=== PATIENT | male | born 1935 | race Caucasian/White ===

== ENCOUNTER 2019-10-19 12:06 | Day surgery (SDC) | payer MEDICARE, BC ==
[~2019-10-19] VITALS: Ht 170.3 cm; Wt 66.1 kg
[~2019-10-19 12:06] MED LIST: ASPIRIN 81M81 MG/TA2 PO; ASPIRIN E.C. 8181 MG PO; ATIVAN 0.50.5 MG/TAB PO; CETIRIZINE10 MG PO; COZAAR100 MG PO; DIOVAN320 MG PO; FOLIC ACID 11 MG/TA1 PO; LABETALOL200 MG PO; LIPITOR 10MG10 MG PO; LUTEIN6 MG; MOTRIN 800800 MG/TAB PO; MULTIPLE VITAMI1 TA5 PO; OMEGA-3 1000 MG1 CAP PO; SINGULAIR 110 MG/TAB PO; TYLENOL 325MG325 MG PO; VITAMIN C500 MG PO; VITAMIN FLUSH-F1 CAP PO
[2019-10-19 12:58] LABS: HEMATOCRIT 42.7 % (42.0-52.0); HEMOGLOBIN 14.7 g/dl (13.5-18.0); MEAN CELL VOLUME 101 fl (80.0-100.0); MEAN CORPUSCULAR HEMOGLOBIN 35 pg (27.0-31.0); MEAN CORPUSCULAR HGB CONC 34 g/dl (33.0-37.0); MEAN PLATELET VOLUME 8.5 fl (7.4-10.4); PLATELET COUNT 123 K/mm3 (130-400); RED BLOOD COUNT 4.25 M/mm3 (4.20-5.60); REDCELL DISTRIBUTION WIDTH-CV 13.2 % (11.5-14.5)
[2019-10-19] MEDS ORDERED: CALCIUM 600MG+D1 TAB PO (13:00)
[2019-10-19] MEDS ORDERED: ZYRTEC 10MG10 MG PO (13:01)
[2019-10-19 13:04] VITALS: BP 165/115; PULSE 106; TEMP 97.8
[2019-10-19 13:12] LABS: INR 1.1 (0.8-3.0); PROTHROMBIN TIME 11.8 SECONDS (9.7-12.8)
[2019-10-19 13:13] LABS: CALCIUM 9.2 mg/dL (8.4-10.2); CREATININE, serum 1.04 (0.66-1.25); MAGNESIUM 1.8 mg/dL (1.6-2.3); POTASSIUM 4.2 mmol/L (3.4-5.0)
[2019-10-19] MEDS ORDERED: FLOMAX 0.40.4 MG/CAP PO (13:21)
[2019-10-19] MEDS ORDERED: ELIQUIS 5MG PO (13:22)
[2019-10-19 13:43] LABS: THYROID STIMULATING HORMONE 2.7 uIU/mL (0.465-4.680)
[2019-10-19 13:52] VITALS: BP 138/78; PULSE 57
[2019-10-19 13:55] VITALS: BP 144/86; PULSE 58
[2019-10-19 14:10] VITALS: BP 137/75; PULSE 54
[2019-10-19 14:25] VITALS: BP 139/93; PULSE 60
[2019-10-19 14:40] VITALS: BP 151/80; PULSE 57
--- NOTE | 2019-10-19 15:00 | NUR ---
Steady gait. DC instructions reviewed with pt, he expresses understanding. He is assisted by wheelchair to [facility] transportation vehicle with personal belongings. INT was DC'd with catheter intact, and bleeding at site controlled with coban wrap.
== END 2019-10-19 15:00 | disposition home or self-care (01) ==
LOC: COL.CAR 12:06
PROVIDERS: Internal Medicine Cardiovascular Disease
DX: I48.0 Paroxysmal atrial fibrillation (principal); I10 Essential (primary) hypertension; I27.20 Pulmonary hypertension, unspecified; I73.9 Peripheral vascular disease, unspecified; E78.2 Mixed hyperlipidemia; G47.33 Obstructive sleep apnea (adult) (pediatric); E55.9 Vitamin D deficiency, unspecified; Z87.891 Personal history of nicotine dependence; Z79.01 Long term (current) use of anticoagulants; Z79.899 Other long term (current) drug therapy; Z82.3 Family history of stroke; Z80.0 Family history of malignant neoplasm of digestive organs

== ENCOUNTER 2020-03-06 04:04 | Emergency (ER) | payer MEDICARE, BC ==
[~2020-03-06] VITALS: Ht 165.1 cm; Wt 65.9 kg
[~2020-03-06 04:04] MED LIST changes: +CALCIUM 600MG+D1 TAB PO; +ELIQUIS 5MG PO; +FLOMAX 0.40.4 MG/CAP PO; +ZYRTEC 10MG10 MG PO
[2020-03-06 04:06] VITALS: BP 167/87; PULSE 79; TEMP 97.6
[2020-03-06] MEDS ORDERED: BETAPACE 120MG120 MG PO (04:14)
[2020-03-06] MEDS ORDERED: LIDODERM 5% PATC1 EA TP (05:11)
== END 2020-03-06 05:20 | disposition home or self-care (01) ==
LOC: COL.ER 04:04
DX: S32.019A Unspecified fracture of first lumbar vertebra, initial encounter for closed fracture (principal); I10 Essential (primary) hypertension; E78.00 Pure hypercholesterolemia, unspecified; Z87.891 Personal history of nicotine dependence; Z79.01 Long term (current) use of anticoagulants; W19.XXXA Unspecified fall, initial encounter

== ENCOUNTER 2020-04-11 08:39 | Day surgery (SDC) | payer MEDICARE, BC ==
[~2020-04-11] VITALS: Ht 170.3 cm; Wt 65.3 kg
[~2020-04-11 08:39] MED LIST changes: +BETAPACE 120MG120 MG PO; +LIDODERM 5% PATC1 EA TP
[2020-04-11 09:28] LABS: HEMATOCRIT 40.6 % (42.0-52.0); HEMOGLOBIN 13.8 g/dl (13.5-18.0); MEAN CELL VOLUME 102 fl (80.0-100.0); MEAN CORPUSCULAR HEMOGLOBIN 35 pg (27.0-31.0); MEAN CORPUSCULAR HGB CONC 34 g/dl (33.0-37.0); MEAN PLATELET VOLUME 8.9 fl (7.4-10.4); PLATELET COUNT 137 K/mm3 (130-400); RED BLOOD COUNT 3.97 M/mm3 (4.20-5.60); REDCELL DISTRIBUTION WIDTH-CV 12.7 % (11.5-14.5)
[2020-04-11 09:33] VITALS: BP 143/90; PULSE 87; TEMP 97.9
[2020-04-11 10:09] LABS: INR 1.5 (0.8-3.0); PROTHROMBIN TIME 16.7 SECONDS (9.7-12.8)
[2020-04-11 10:10] LABS: CREATININE, serum 1.11 (0.66-1.25); MAGNESIUM 1.9 mg/dL (1.6-2.3); POTASSIUM 4.5 mmol/L (3.4-5.0)
[2020-04-11 10:12] LABS: PARTIAL THROMBOPLASTIN TIME 35.2 SECONDS (26.0-37.0)
[2020-04-11 10:31] VITALS: BP 107/67; PULSE 82
[2020-04-11 10:40] LABS: THYROID STIMULATING HORMONE 2.2 uIU/mL (0.465-4.680)
[2020-04-11 10:46] VITALS: BP 129/76; PULSE 87
[2020-04-11 11:19] VITALS: BP 143/82; BP 148/66; PULSE 66; PULSE 82
--- NOTE | 2020-04-11 11:20 | NUR ---
INT discontinued intact. Discharge instructions given.
--- NOTE | 2020-04-11 11:41 | NUR ---
Transferred gabriela Latham transportation by stephen
== END 2020-04-11 11:25 | disposition home or self-care (01) ==
LOC: COL.CAR 08:39
PROVIDERS: Internal Medicine Cardiovascular Disease
DX: I48.0 Paroxysmal atrial fibrillation (principal); I10 Essential (primary) hypertension; I27.20 Pulmonary hypertension, unspecified; E78.5 Hyperlipidemia, unspecified; G47.33 Obstructive sleep apnea (adult) (pediatric); J45.909 Unspecified asthma, uncomplicated; H91.90 Unspecified hearing loss, unspecified ear; Z79.01 Long term (current) use of anticoagulants; Z79.899 Other long term (current) drug therapy; Z79.02 Long term (current) use of antithrombotics/antiplatelets; Z87.891 Personal history of nicotine dependence
CPT/HCPCS: J2704

== ENCOUNTER 2020-12-17 07:29 | Emergency (ER) | payer MEDICARE, BC ==
[~2020-12-17] VITALS: Ht 167.6 cm; Wt 65.0 kg
[2020-12-17 07:36] VITALS: BP 130/98; TEMP 97.3
[2020-12-17 08:18] LABS: BASO % 0.6 % (0.0-2.0); EOS # 0.1 (0.0-0.7); EOS % 2.7 % (0-4.0); GRAN # 2.4 (1.4-6.5); GRAN % 47.1 % (42.2-75.2); HEMATOCRIT 35.3 % (42.0-52.0); HEMOGLOBIN 12.5 g/dl (13.5-18.0); LYMPH # 2.1 (1.2-3.4); LYMPH % 41.4 % (20.0-51.0); MEAN CELL VOLUME 104 fl (80.0-100.0); MEAN CORPUSCULAR HEMOGLOBIN 37 pg (27.0-31.0); MEAN CORPUSCULAR HGB CONC 35 g/dl (33.0-37.0); MEAN PLATELET VOLUME 8.6 fl (7.4-10.4); MONO # 0.4 (0.1-0.6); MONO % 7.4 % (1.7-9.3); PLATELET COUNT 126 K/mm3 (130-400); REDCELL DISTRIBUTION WIDTH-CV 12.9 % (11.5-14.5)
[2020-12-17 09:23] VITALS: PULSE 75
== END 2020-12-17 08:45 | disposition home or self-care (01) ==
LOC: COL.ER 07:29
PROVIDERS: Family Medicine
DX: S00.83XA Contusion of other part of head, initial encounter (principal); H11.32 Conjunctival hemorrhage, left eye; I10 Essential (primary) hypertension; I48.91 Unspecified atrial fibrillation; E78.00 Pure hypercholesterolemia, unspecified; Z79.01 Long term (current) use of anticoagulants; Z79.899 Other long term (current) drug therapy; W01.0XXA Fall on same level from slipping, tripping and stumbling without subsequent striking against object, initial encounter

== ENCOUNTER 2020-12-19 18:52 | Emergency (ER) | payer MEDICARE, BC ==
[~2020-12-19] VITALS: Ht 165.1 cm; Wt 64.5 kg
[2020-12-19 18:54] VITALS: TEMP 97.8
[2020-12-19 19:26] LABS: BASO % 0.4 % (0.0-2.0); EOS # 0.1 (0.0-0.7); EOS % 1.9 % (0-4.0); GRAN # 2.7 (1.4-6.5); GRAN % 49.4 % (42.2-75.2); HEMATOCRIT 32.6 % (42.0-52.0); HEMOGLOBIN 11.3 g/dl (13.5-18.0); LYMPH # 2.1 (1.2-3.4); LYMPH % 38.3 % (20.0-51.0); MEAN CELL VOLUME 106 fl (80.0-100.0); MEAN CORPUSCULAR HEMOGLOBIN 37 pg (27.0-31.0); MEAN CORPUSCULAR HGB CONC 35 g/dl (33.0-37.0); MEAN PLATELET VOLUME 8.6 fl (7.4-10.4); MONO # 0.5 (0.1-0.6); MONO % 9.3 % (1.7-9.3); PLATELET COUNT 109 K/mm3 (130-400); RED BLOOD COUNT 3.08 M/mm3 (4.20-5.60); REDCELL DISTRIBUTION WIDTH-CV 13.1 % (11.5-14.5)
[2020-12-19 19:47] LABS: ALBUMIN 3.4 gm/dL (3.4-4.8); BILIRUBIN,TOTAL 0.7 mg/dL (0.2-1.2); CALCIUM 8.4 mg/dL (8.4-10.2); CREATININE, serum 1.12 mg/dL (0.72-1.25); POTASSIUM 4.5 mmol/L (3.5-4.5); TOTAL PROTEIN 5.7 gm/dL (6.2-8.1)
[2020-12-19 22:16] VITALS: BP 149/108; PULSE 98
== END 2020-12-19 22:16 | disposition home or self-care (01) ==
LOC: COL.ER 18:52
PROVIDERS: Family Medicine
DX: S05.12XA Contusion of eyeball and orbital tissues, left eye, initial encounter (principal); W19.XXXA Unspecified fall, initial encounter

== ENCOUNTER 2020-12-30 14:44 | Inpatient (IN) | payer MEDICARE, BC ==
[~2020-12-30] VITALS: Ht 165.1 cm; Wt 66.7 kg
[2020-12-30 15:47] LABS: BASO % 0.8 % (0.0-2.0); EOS % 0.8 % (0-4.0); GRAN # 2.9 K/mm3 (1.4-6.5); GRAN % 57.9 % (42.2-75.2); HEMOGLOBIN 12.6 g/dl (13.5-18.0); LYMPH # 1.5 K/mm3 (1.2-3.4); LYMPH % 29.9 % (20.0-51.0); MEAN CELL VOLUME 105 fl (80.0-100.0); MEAN CORPUSCULAR HEMOGLOBIN 36 pg (27.0-31.0); MEAN CORPUSCULAR HGB CONC 35 g/dl (33.0-37.0); MONO # 0.5 K/mm3 (0.1-0.6); MONO % 9.8 % (1.7-9.3); PLATELET COUNT 107 K/mm3 (130-400); RED BLOOD COUNT 3.46 M/mm3 (4.20-5.60); REDCELL DISTRIBUTION WIDTH-CV 13.2 % (11.5-14.5)
[2020-12-30 15:48] LABS: HEMATOCRIT 36.4 % (42.0-52.0)
[2020-12-30 16:03] LABS: ALANINE AMINOTRANSFERASE 49 U/L (0-55); ALBUMIN 3.8 gm/dL (3.4-4.8); ALKALINE PHOSPHATASE 77 U/L (0-750); ANION GAP 13 mmol/L (7-16); AST,SGOT 56 U/L (5-34); BLOOD UREA NITROGEN 12 mg/dL (8-26); CARBON DIOXIDE 23 mmol/L (23-31); CHLORIDE 102 mmol/L (98-107); CREATININE, serum 1.22 mg/dL (0.72-1.25); GLUCOSE 204 mg/dL (70-99); POTASSIUM 3.8 mmol/L (3.5-4.5); SODIUM 138 mmol/L (136-145); TOTAL PROTEIN 6.5 gm/dL (6.2-8.1)
[2020-12-30 16:10] LABS: TROPONIN-I < 0.010 ng/mL (0.00-0.033)
[2020-12-30 17:54] LABS: COLLECTION METHOD CLEAN CATCH
[2020-12-30 18:00] LABS: PH 6 (5-8); SQUAMOUS EPITHELIAL None Seen /hpf; URINE APPEARANCE Clear; URINE BACTERIA None Seen /hpf; URINE BILIRUBIN Negative (NEGATIVE); URINE BLOOD Negative (NEGATIVE); URINE COLOR Yellow; URINE GLUCOSE 2+ (NEGATIVE); URINE KETONE Negative (NEGATIVE); URINE LEUKOCYTE ESTERASE Negative (NEGATIVE); URINE NITRATE Negative (NEGATIVE); URINE PROTEIN(semi-quant) Negative (NEGATIVE); URINE RBC 0-2 /hpf
[2020-12-30 19:37] LABS: INR 1.2 (0.8-3.0); PROTHROMBIN TIME 13.3 SECONDS (9.7-12.8)
[2020-12-30 19:39] LABS: PARTIAL THROMBOPLASTIN TIME 31.5 SECONDS (26.0-37.0)
--- NOTE | 2020-12-30 20:10 | NUR ---
Patient arrived to the unit from ED, Alert and oriented x 4, VSS, no complains of pain, nausea or vomiting. He is very weak, unable to transfer himself from bed to bed. Friend with him as support person. Tele in place, Room air.
[2020-12-30 21:21] VITALS: BP 134/86; PULSE 61; TEMP 97.5
[2020-12-31] VITALS (7 sets, daily range): BP systolic 125–153; BP diastolic 67–91; PULSE 74–106; TEMP 97.4–97.9
[2020-12-31 06:33] LABS: BASO % 0.6 % (0.0-2.0); EOS % 0.7 % (0-4.0); GRAN # 3.1 K/mm3 (1.4-6.5); GRAN % 56.7 % (42.2-75.2); HEMOGLOBIN 12.4 g/dl (13.5-18.0); LYMPH # 1.8 K/mm3 (1.2-3.4); LYMPH % 33.6 % (20.0-51.0); MEAN CELL VOLUME 108 fl (80.0-100.0); MEAN CORPUSCULAR HEMOGLOBIN 37 pg (27.0-31.0); MEAN CORPUSCULAR HGB CONC 34 g/dl (33.0-37.0); MONO # 0.4 K/mm3 (0.1-0.6); MONO % 7.8 % (1.7-9.3); PLATELET COUNT 106 K/mm3 (130-400); RED BLOOD COUNT 3.39 M/mm3 (4.20-5.60); REDCELL DISTRIBUTION WIDTH-CV 13.2 % (11.5-14.5)
[2020-12-31 06:34] LABS: HEMATOCRIT 36.7 % (42.0-52.0)
[2020-12-31 06:53] LABS: CALCIUM 9.2 mg/dL (8.4-10.2); CHOLESTEROL RISK RATIO 1.7; CREATININE, serum 1.16 mg/dL (0.72-1.25)
--- NOTE | 2020-12-31 07:02 | NUR ---
Patient has had a calm night, his HR did not increased over 120, He has been resting in bed but with insomnia. Shift report given to day nurse.
--- NOTE | 2020-12-31 10:00 | NUR ---
Assessment completed, patient alert/disoriented but easily redireted and re oriented, vital signs stable/ Tachy around 100 bpm and A.fib on tele, Sotalol is currently on hold per , lungs CTA/ no resp.difficulty, patient has brusing to face from recent falls, fall p/c in place here and he remains a high fall risk , morning meds given ,he is eating and drinking well, plans for SNF upon discharge, will continue to monitor
--- NOTE | 2020-12-31 15:18 | NUR ---
Plan is [facility] ID[facility] or SNF. SW met with patient about care plan. Patient reports that he resides at [facility] independent living. Patient reports that his passed a year ago and that he has two children Zoila Cuello in [place] and Jhonatan Harris . Patient indicated that he has a can and walker that he interchanges for mobility and Dr. Fitzpatrick is PCP. Leandra shares that he has not been to primary in a while. SW reached out to [facility] and no DPOA on file . Patient is okay with going to rehab however he will have to have at least three mid nights. Patient has has several recent falls but did not report them to [facility]. WIll follow. for care supports.
--- NOTE | 2020-12-31 20:30 | NUR ---
Patient is in chair, watching TV, he is alert, oriented, and active. VSS, no pain, nausea or vomiting. Tele in place, Glucose WNR. Assessment completed, meds provided, no further needs at this time, call light within reach.
--- NOTE | 2020-12-31 21:58 | NUR ---
Patient reports head ache, some tylenol provided.
--- NOTE | 2021-01-01 04:00 | NUR ---
Patient removed the IV access from his RAC site. Started new with 20 yasir IV in right forearm.
[2021-01-01 06:31] VITALS: BP 118/69; PULSE 98; TEMP 97.9
--- NOTE | 2021-01-01 07:04 | NUR ---
Patient was very active at night. He visit the restrom several times. Then he was sleeping for some hours. AT 6am he reports feeling weak, and he used the urinal instead of going to the restroom. HR in the 100's, not over 120s. Patient took IV out. Linen changed and new IV started. Shift report given to day nurse.
--- NOTE | 2021-01-01 10:00 | NUR ---
Assessment completed, alert/ disoriented but easily redirected, denies pain, vital signs stable, HR 90-120, A.fib and irregular on tele, notified and aware, he denies any SOA or resp.difficulty, brusing noted to face from falls at home, he is a high fall risk here as well, bed and chair alarms and fall p/c in place, plans for d/c to [facility] SNF on Saturday, I have discussed plan of care with his close friend who has been in contact with his family, shira romano to monitor
[2021-01-01 13:43] VITALS: BP 125/81; PULSE 55; TEMP 98.1
[2021-01-01 17:08] VITALS: BP 122/64; PULSE 104; TEMP 98.2
[2021-01-01 20:01] VITALS: BP 167/88; PULSE 107; TEMP 98.9
[2021-01-01 20:10] VITALS: BP 146/94; PULSE 102; TEMP 98.5
[2021-01-02] VITALS (10 sets, daily range): BP systolic 91–150; BP diastolic 52–95; PULSE 78–109; TEMP 97.5–99
--- NOTE | 2021-01-02 00:55 | NUR ---
ALERT AND CONFUSED. SETTING UP IN RECLINER. AMB TO BR W NURSE ASST, GAIT BELT. PM MEDS. TUCKED IN FOR NIGHT. BED ALARM ON. CALL LIGHT WI REACH. PM MEDS GIVEN. NEEDS MET.
--- NOTE | 2021-01-02 05:47 | NUR ---
RESTED THROUGH THE NIGHT WITHOUT INCIDENT. NEEDS ARE MET.
--- NOTE | 2021-01-02 09:00 | NUR ---
Shift assessment complete. Pt sitting up in recliner. Assisted to commode around 0745, pt very shaky. x2 assist w/gait belt and walker needed to get pt to commode. Pt incontinent of small amount of stool in recliner. Began vomiting undigested food while sitting on commode. 0800 detox score 6. PO valium 7.5 mg given per orders. Pt assisted back to bed. Heart rhythm irregular, rate 90-120. Lungs CTA. Pt alert, partially oriented. Denies pain or other concerns at this time. Chair alarm on and call light in reach. Continuing to monitor.
[2021-01-02 09:05] LABS: HEMOGLOBIN 12.8 g/dl (13.5-18.0); MEAN CELL VOLUME 105 fl (80.0-100.0); MEAN CORPUSCULAR HEMOGLOBIN 37 pg (27.0-31.0); MEAN CORPUSCULAR HGB CONC 35 g/dl (33.0-37.0); MEAN PLATELET VOLUME 9.4 fl (7.4-10.4); PLATELET COUNT 103 K/mm3 (130-400); RED BLOOD COUNT 3.47 M/mm3 (4.20-5.60)
[2021-01-02 09:08] LABS: HEMATOCRIT 36.4 % (42.0-52.0)
[2021-01-02 09:18] LABS: IRON,SERUM 56 ug/dL (35-150)
[2021-01-02 09:21] LABS: CALCIUM 9.2 mg/dL (8.4-10.2); CREATININE, serum 1.32 mg/dL (0.72-1.25); MAGNESIUM 1.6 mg/dL (1.6-2.6); POTASSIUM 4.5 mmol/L (3.5-4.5)
[2021-01-02 09:28] LABS: TOTAL IRON BINDING CAPACITY 186 ug/dL (261-462)
--- NOTE | 2021-01-02 10:15 | NUR ---
LUZ ELENA Castanon notified pt more drowsy than this morning and hypotension.
--- NOTE | 2021-01-02 13:15 | NUR ---
JENNIFER attended clinical rounds. The patient was sleeping in his chair and would only wake up briefly. PT/OT are recommending post-acute rehab. The patient's DPOA-HC is in EMR. It designated his and then his two children: Zoila and Jhonatan. JENNIFER attempted to contact Zoila at the phone number charted. No answer. JENNIFER attempted to contact the patient's son, Ricci. JENNIFER left a voicemail. JENNIFER then received a phone call back from Jhonatan. Jhonatan provided JENNIFER with his cell phone #[phone]. JENNIFER updated him on therapy's recommendation. Jhonatan reports that rehab at [facility] is the plan. Jhonatan reports that he has not got an update from an RN or doctor and would like one. JENNIFER notified the patient's PA, Tyra. JENNIFER contacted and faxed a referral to Ronnie at [facility]. Ronnie reports that they are able to accept the patient for a skilled stay, but that the patient will need to be done with detoxing and not requiring anymore valium. SW to continue to follow. *Discharge plan: [facility] SNF*
--- NOTE | 2021-01-02 21:30 | NUR ---
Patiente is resting in bed, alert and oriented, HR over 100. Reports no chest pain. CIWA 2, Tele in place, Afib, Assessment completed, meds provided. No further needs at this time. Call light within reach.
--- NOTE | 2021-01-02 23:30 | NUR ---
Patient had an incontinent BM, was helped to transfer to the [facility] and finish. Linens and gown changed, Hygiene provided. Transfer to bed.
[2021-01-03] VITALS (7 sets, daily range): BP systolic 95–152; BP diastolic 61–85; PULSE 82–107; TEMP 97.7–100.3
--- NOTE | 2021-01-03 06:57 | NUR ---
Patient has had a calm night. Ciwa score between 1 and 2. HR no higher than 120. Patient feels weak, he was able to sleep along the night. Shift report given to day nurse.
[2021-01-03 08:01] LABS: BASO % 0.3 % (0.0-2.0); EOS # 0.1 K/mm3 (0.0-0.7); EOS % 1.7 % (0-4.0); GRAN # 4.9 K/mm3 (1.4-6.5); GRAN % 63.1 % (42.2-75.2); HEMOGLOBIN 12.5 g/dl (13.5-18.0); LYMPH % 25.9 % (20.0-51.0); MEAN CELL VOLUME 104 fl (80.0-100.0); MEAN CORPUSCULAR HEMOGLOBIN 37 pg (27.0-31.0); MEAN CORPUSCULAR HGB CONC 35 g/dl (33.0-37.0); MEAN PLATELET VOLUME 9.3 fl (7.4-10.4); MONO # 0.7 K/mm3 (0.1-0.6); MONO % 8.6 % (1.7-9.3); PLATELET COUNT 112 K/mm3 (130-400); RED BLOOD COUNT 3.39 M/mm3 (4.20-5.60)
[2021-01-03 08:06] LABS: HEMATOCRIT 35.3 % (42.0-52.0)
[2021-01-03 08:21] LABS: CALCIUM 8.8 mg/dL (8.4-10.2); CREATININE, serum 1.03 mg/dL (0.72-1.25); POTASSIUM 4.3 mmol/L (3.5-4.5)
--- NOTE | 2021-01-03 10:47 | NUR ---
PT HAS BEEN SITTING IN RECLINER THIS MORNING. HAS DENIED ANY PAIN, JUST STATES HE FEELS WEAK. THE PATIENT HAS NOT BEEN SCORING MORE THAN 3 ON THE CIWA. NO OTHER CONCERNS.
[2021-01-03] MEDS ORDERED: BETAPACE 120MG120 MG PO ×2 (14:20)
[2021-01-03] MEDS ORDERED: ZYRTEC 10MG10 MG PO (14:20)
[2021-01-03] MEDS ORDERED: VITAMIN FLUSH-F1 CAP PO (14:20)
[2021-01-03] MEDS ORDERED: OMEGA-3 1000 MG1 CAP PO (14:20)
[2021-01-03] MEDS ORDERED: ELIQUIS 5MG PO (14:20)
[2021-01-03] MEDS ORDERED: LIPITOR 10MG10 MG PO (14:20)
[2021-01-03] MEDS ORDERED: FLOMAX 0.40.4 MG/CAP PO (14:20)
[2021-01-03] MEDS ORDERED: TYLENOL 325MG325 MG PO (14:21)
[2021-01-03] MEDS ORDERED: COZAAR100 MG PO ×2 (14:21)
[2021-01-03] MEDS ORDERED: THIAMINE 1100 MG/TAB PO (14:22)
[2021-01-03] MEDS ORDERED: SINGULAIR 110 MG/TAB PO (14:22)
[2021-01-03] MEDS ORDERED: CALCIUM 600MG+D1 TAB PO (14:22)
[2021-01-03] MEDS ORDERED: FOLIC ACID 11 MG/TA1 PO (14:22)
[2021-01-03] MEDS ORDERED: MULTIPLE VITAMI1 TA5 PO (14:23)
[2021-01-03] MEDS ORDERED: VITAMIN C500 MG PO (14:23)
--- NOTE | 2021-01-03 14:27 | NUR ---
The PA notified JENNIFER that the patient is ready to discharge the patient today. JENNIFER faxed updates to Ronnie at [facility]. Ronnie reports that they are able to accept the patient today, but would like his vitals done before they come and pick him up at 1500. JENNIFER notified the patient' RN. JENNIFER faxed the patient's vitals to [facility]. The patient is to discharge today, 01/03, to [facility] for a skilled stay. Transportation was scheduled at 1500, via [facility]. JENNIFER informed the patient, his RN, and the patient's son (Jhonatan) of the time. They were all in agreement to the time. JENNIFER also presented and read the IM form outloud to the patient. The patient verbalized understanding and signed the form. JENNIFER provided him with a copy. No additional needs at this time.
== END 2021-01-03 15:45 | DRG 309 ==
LOC: COL.ER 14:44 → MEDICAL 17:16
PROVIDERS: Family Medicine; Physician Assistant; Student in an Organized Health Care Education/Training Program; ADMIT Internal Medicine
DX: I48.91 Unspecified atrial fibrillation (principal); E87.1 Hypo-osmolality and hyponatremia; E78.00 Pure hypercholesterolemia, unspecified; M19.90 Unspecified osteoarthritis, unspecified site; Z87.891 Personal history of nicotine dependence; D50.9 Iron deficiency anemia, unspecified; D69.6 Thrombocytopenia, unspecified; R73.9 Hyperglycemia, unspecified; F10.10 Alcohol abuse, uncomplicated; Y90.9 Presence of alcohol in blood, level not specified; I12.9 Hypertensive chronic kidney disease with stage 1 through stage 4 chronic kidney disease, or unspecified chronic kidney disease; N18.30 Chronic kidney disease, stage 3 unspecified; N40.0 Benign prostatic hyperplasia without lower urinary tract symptoms
CPT/HCPCS: 99223-AI; 99231-AI; 99232-AI; 99239; J3475; Q9967

== ENCOUNTER 2021-02-15 12:33 | Observation (INO) | payer MEDICARE, BC ==
[~2021-02-15] VITALS: Ht 165.1 cm; Wt 62.4 kg
[~2021-02-15 12:33] MED LIST changes: +THIAMINE 1100 MG/TAB PO
[2021-02-15 13:43] LABS: BASO % 0.3 % (0.0-2.0); EOS # 0.1 K/mm3 (0.0-0.7); EOS % 1.3 % (0-4.0); GRAN # 3.9 K/mm3 (1.4-6.5); GRAN % 62.6 % (42.2-75.2); HEMATOCRIT 38.4 % (42.0-52.0); HEMOGLOBIN 13.3 g/dl (13.5-18.0); LYMPH # 1.8 K/mm3 (1.2-3.4); LYMPH % 28.5 % (20.0-51.0); MEAN CELL VOLUME 104 fl (80.0-100.0); MEAN CORPUSCULAR HEMOGLOBIN 36 pg (27.0-31.0); MEAN CORPUSCULAR HGB CONC 35 g/dl (33.0-37.0); MEAN PLATELET VOLUME 8.8 fl (7.4-10.4); MONO # 0.4 K/mm3 (0.1-0.6); PLATELET COUNT 102 K/mm3 (130-400); RED BLOOD COUNT 3.71 M/mm3 (4.20-5.60); REDCELL DISTRIBUTION WIDTH-CV 12.7 % (11.5-14.5)
[2021-02-15 14:02] LABS: ALBUMIN 3.9 gm/dL (3.4-4.8); BILIRUBIN,TOTAL 1.1 mg/dL (0.2-1.2); CALCIUM 9.1 mg/dL (8.4-10.2); CREATININE, serum 0.96 mg/dL (0.72-1.25); POTASSIUM 4.9 mmol/L (3.5-4.5); TOTAL PROTEIN 6.8 gm/dL (6.2-8.1)
[2021-02-15 16:17] LABS: MAGNESIUM 1.5 mg/dL (1.6-2.6)
[2021-02-15 16:37] LABS: TSH w REFLEX 1.615 uIU/mL (0.350-4.940)
--- NOTE | 2021-02-16 00:50 | NUR ---
ATTEMPT TO CALL NURSE IN ER FOR REPORT X 2. NUMBER LEFT FOR WHEN SHE IS AVALIABLE.
--- NOTE | 2021-02-16 02:04 | NUR ---
0130- ADMIT TO FLOOR FROM ER PER PAUL MCALLISTER. FROM [facility]-DENIES ANY SOA, CHEST PAIN OR PALPATIONS STATES THE NURSE SAYS HE WAS IN AFIB AGAIN. PT WILL BE NPO FOR POSSIBLE CARDIOVERSION AND OR CONNOR. ASSESSMENT AND HX OBTAINED. MED REC REVIEWED AND HOME MEDS RESTARTED. ROOM ORIENTATION DONE. FRANSICO CELAYA. CALL LIGHT WI REACH.
--- NOTE | 2021-02-16 05:22 | NUR ---
PT HAS BEEN NPO SINCE ADMIT TO FLOOR 0130- [facility] GTT RUNNING PER ORDER AT 5ML/HR. CALL LIGHT WI REACH.
[2021-02-16 05:24] VITALS: BP 106/54; PULSE 66; TEMP 98.1
--- NOTE | 2021-02-16 06:57 | NUR ---
REPORT RECEIVED FROM LUZ ELENA SARGENT.
[2021-02-16 07:43] VITALS: BP 94/50; PULSE 79; TEMP 97.6
[2021-02-16 08:00] VITALS: BP 118/68; PULSE 50
--- NOTE | 2021-02-16 09:30 | NUR ---
PT ALERT AND ABLE TO ANSWER ORIENTATION QUESTIONS APPROPRIATELY. INTERMITTENT CONFUSION NOTED WITH CONVERSATION. PT HAS ABRASIONS OVER UPPER AND LOWER EXTREMITIES BILATERALLY. PT DOES NOT RECALL WHERE THEY CAME FROM. PT UPPER LOBES CLEAR, BASES COARSE BILATERALLY. PT DORSALIS PEDIS AND POSTERIOR TIBIAL PULSES 1+ BILATERALLY, CAP REFILL <3S. PT S1,S2 IRREGULAR. PT CALL LIGHT WITHIN REACH.
--- NOTE | 2021-02-16 10:25 | NUR ---
JENNIFER met with the patient to discuss discharge plan. The patient lives alone at [facility] in Independent Living. He reports independence with ADLs and has a cane and walker. He receives home health services from [facility]. JENNIFER contacted Jaycee at [facility] and confirmed that he is receives PT/OT/SN services from them. The patient's PCP is Dr. Jasmeet Fitzpatrick and he receives his medications from [facility]. He reports no difficulties obtaining his meds. The patient's DPOA-HC is in EMR. It designates his late and then his children: Zoila (ph#[phone]) and Jhonatan (ph#[phone]). Zoila lives in [place], [place] and Jhonatan lives in [place]. The patient plans on returning home and resuming services from [facility] upon discharge. JENNIFER faxed updates to Jaycee at [facility]. JENNIFER to continue to follow. *Discharge plan: [facility] independent living with home health*
--- NOTE | 2021-02-16 10:30 | NUR ---
CONTACTED DR. OCONNOR OF PT HEART RATE 50 ON TELEMETRY. QUESTIONED GIVING BLOOD PRESSURE MEDICATION, RECEIVED TELEPHONE INSTRUCTION TO GIVE MEDICATION AND HOLD CARDIZEM FOR DOSE ADJUSTEMENT.
[2021-02-16] MEDS ORDERED: CARDIZEM CD 12120 MG PO ×2 (11:05)
[2021-02-16] MEDS ORDERED: LOPRESSOR100 MG PO ×3 (11:05→12:44)
[2021-02-16 11:37] VITALS: BP 118/98; PULSE 62; TEMP 97.7
--- NOTE | 2021-02-16 11:54 | NUR ---
The hospitalist notified JENNIFER that she is ready to discharge the patient today. The patient's status is being downgraded to observation. JENNIFER and Cori, production designer, met with the patient to inform of the status change. JENNIFER presented the Medicare Outpatient Observation Notice Form and read it outloud to the patient. The patient verbalized understanding and signed the form. JENNIFER provided him with a copy. The patient states that he will need transportation arranged through [facility]. The patient is to discharge back home today, 02/16, with [place] health [place] [facility]/PT/OT from [facility]. JENNIFER notified and faxed discharge orders to Jaycee at [facility]. Transportation was arranged at 1300, via [facility]. JENNIFER notified the patient's RN of the time. No additional needs at this time.
[2021-02-16 12:00] VITALS: BP 86/62; PULSE 98; TEMP 97.5
--- NOTE | 2021-02-16 12:35 | NUR ---
NOTIFIED KAREEN WINTER AND DR. OCONNOR OF PT HEART RATE IN 30S. NEW ORDERS FOR MEDICATIONS TO BE PLACED BEFORE DISCHARGE.
[2021-02-16] MEDS ORDERED: LOPRESSOR 550 MG/TAB PO (12:44)
--- NOTE | 2021-02-16 12:53 | NUR ---
UPON ENTRY TO GIVE DISCHARGE INSTRUCTIONS AND PAPERWORK, PT FOUND CLOTHED WITH IV TAKEN OUT AND TELEMETRY TAKEN OFF BY PT. NO ACTIVE BLEEDING NOTED. PT HAD TURNED OFF IV PUMP AND THROWN AWAY MEDICATION. DISCHARGE INSTRUCTIONS GIVEN TO BEST OF ABILITY. EDUCATION PROVIDED TO BEST OF ABILITY. PT TO BE WHEELED OUT WITH TRANSPORT.
--- NOTE | 2021-02-16 13:31 | NUR ---
[facility] MEDICATIONS AND HEALTH SUMMARY PAPERWORK.
--- NOTE | 2021-02-16 13:46 | NUR ---
CLARIFIED WITH EVERETT ALLEN, WITH CARDIOLOGY THAT CARDIZEM SHOULD NOT BE PRESCRIBED. NOTIFIED DR. NGUYEN OF DISCONTINUATION OF CARDIZEM AFTER PT DISCHARGED.
== END 2021-02-16 13:10 | disposition home or self-care (01) ==
LOC: COL.ER 12:33 → MEDICAL 15:39
PROVIDERS: Personal Emergency Response Attendant; Physician Assistant; ADMIT Internal Medicine
DX: I48.91 Unspecified atrial fibrillation (principal); I10 Essential (primary) hypertension; E78.5 Hyperlipidemia, unspecified; D53.9 Nutritional anemia, unspecified; G47.33 Obstructive sleep apnea (adult) (pediatric); N40.0 Benign prostatic hyperplasia without lower urinary tract symptoms; E78.00 Pure hypercholesterolemia, unspecified; Z79.899 Other long term (current) drug therapy; Z99.89 Dependence on other enabling machines and devices; Z90.89 Acquired absence of other organs; Z79.01 Long term (current) use of anticoagulants; Z87.891 Personal history of nicotine dependence; Z86.73 Personal history of transient ischemic attack (TIA), and cerebral infarction without residual deficits; Z82.3 Family history of stroke
CPT/HCPCS: G0378; J3475

== ENCOUNTER 2021-03-15 13:23 | Emergency (ER) | payer MEDICARE, BC ==
[~2021-03-15] VITALS: Ht 162.6 cm; Wt 65.9 kg
[~2021-03-15 13:23] MED LIST changes: +CARDIZEM CD 12120 MG PO; +LOPRESSOR 550 MG/TAB PO; +LOPRESSOR100 MG PO
[2021-03-15 13:36] VITALS: BP 156/86; TEMP 97.4
[2021-03-15 14:47] VITALS: PULSE 110
== END 2021-03-15 14:47 | disposition home or self-care (01) ==
LOC: COL.ER 13:23
DX: S51.811A Laceration without foreign body of right forearm, initial encounter (principal); I48.91 Unspecified atrial fibrillation; I10 Essential (primary) hypertension; Z79.01 Long term (current) use of anticoagulants; Z79.899 Other long term (current) drug therapy; X58.XXXA Exposure to other specified factors, initial encounter

== ENCOUNTER → 2021-05-10 | Outpatient (CLI) | payer MEDICARE, BC ==
[~2021-05-10] VITALS: Ht 157.5 cm; Wt 66.4 kg
[~2021-05-10] MED LIST changes: +ALLFEN400 MG PO; +DEBROX OT; +DULCOLAX S10 MG/SUPP RC; +ELIQUIS 2.5 PO; +IMODIUM 2MG CAPS2 MG PO; +LASIX 20MG TABL20 MG PO; -LUTEIN6 MG; +LUTEIN6 MG PO; +MELATONIN5 M1 PO; +MELATONIN5 M1 SL; +MILK OF MA400 MG/52 PO; +MUCUS RELIEF400 M1 PO; +MYLANTA 150 ML150 M1 PO; +NATURE'S BLEND100 M2 PO; +PREDNISONE10 MG PO; +PREDNISONE20 MG PO; +TOPROL XL100 MG PO; +TYLENOL SU650 MG/SUP RC
[2021-05-10 09:02] VITALS: BP 130/73; PULSE 103; TEMP 97.6
[2021-05-10 09:55] VITALS: BP 97/67; PULSE 95
[2021-05-10 10:25] LABS: PLEURAL FLUID APPEARANCE CLEAR; PLEURAL FLUID COLOR YELLOW; PLEURAL FLUID RBC 0 /mm3 (0-0); PLEURAL FLUID WBC 583 /mm3
== END ==
LOC: COL.RAD 08:15
PROVIDERS: Family Medicine
DX: J90 Pleural effusion, not elsewhere classified (principal)
CPT/HCPCS: 19804

== ENCOUNTER 2021-05-13 18:07 | Emergency (ER) | payer MEDICARE, BC ==
[~2021-05-13] VITALS: Ht 157.5 cm; Wt 70.0 kg
[2021-05-13 18:09] VITALS: TEMP 98.4
[2021-05-13 18:47] LABS: BASO % 0.5 % (0.0-2.0); EOS # 0.2 K/mm3 (0.0-0.7); EOS % 2.8 % (0.0-4.0); GRAN # 5.3 K/mm3 (1.4-6.5); GRAN % 63.9 % (42.2-75.2); HEMOGLOBIN 12.7 g/dl (13.5-18.0); LYMPH # 1.7 K/mm3 (1.2-3.4); LYMPH % 20.9 % (20.0-51.0); MEAN CELL VOLUME 105 fl (80.0-100.0); MEAN CORPUSCULAR HEMOGLOBIN 35 pg (27-31); MEAN CORPUSCULAR HGB CONC 33 g/dl (33.0-37.0); MEAN PLATELET VOLUME 8.4 fl (7.4-10.4); MONO # 0.9 K/mm3 (0.1-0.6); PLATELET COUNT 224 K/mm3 (130-400); RED BLOOD COUNT 3.63 M/mm3 (4.20-5.60); REDCELL DISTRIBUTION WIDTH-CV 14.4 % (11.5-14.5)
[2021-05-13 19:05] LABS: ALBUMIN 3.1 gm/dL (3.4-4.8); ANION GAP 9 mmol/L (7-16); BLOOD UREA NITROGEN 13 mg/dL (8-26); CALCIUM 8.8 mg/dL (8.4-10.2); CARBON DIOXIDE 26 mmol/L (23-31); CHLORIDE 103 mmol/L (98-107); CREATININE, serum 0.83 mg/dL (0.72-1.25); GLUCOSE 89 mg/dL (70-99); PHOSPHOROUS 4.4 mg/dL (2.3-4.7); POTASSIUM 3.9 mmol/L (3.5-4.5); SODIUM 138 mmol/L (136-145)
[2021-05-13 19:12] LABS: TROPONIN-I < 0.010 ng/mL (0.00-0.033)
[2021-05-13 19:48] LABS: COLLECTION METHOD CLEAN CATCH
[2021-05-13 20:09] LABS: MUCOUS Present (NOT PRESENT); PH 5 (5-8); SQUAMOUS EPITHELIAL 0-2 /hpf (0-10); URINE APPEARANCE Clear (CLEAR/HAZY); URINE BACTERIA None Seen /hpf (NONE SEEN); URINE BILIRUBIN Positive (NEGATIVE); URINE BLOOD Negative (NEGATIVE); URINE COLOR Yellow (YELLOW); URINE GLUCOSE Negative (NEGATIVE); URINE KETONE Trace (NEGATIVE); URINE LEUKOCYTE ESTERASE Negative (NEGATIVE); URINE NITRATE Negative (NEGATIVE); URINE PROTEIN(semi-quant) Negative (NEGATIVE); URINE RBC 0-2 /hpf (0-2)
[2021-05-13 21:30] VITALS: BP 120/61; PULSE 80
== END 2021-05-13 21:45 | disposition home or self-care (01) ==
LOC: COL.ER 18:07
PROVIDERS: Emergency Medicine
DX: R53.1 Weakness (principal); J90 Pleural effusion, not elsewhere classified; I16.0 Hypertensive urgency; I48.91 Unspecified atrial fibrillation

== ENCOUNTER 2021-08-24 02:59 | Observation (INO) | payer MEDICARE, BC ==
[~2021-08-24] VITALS: Ht 167.6 cm; Wt 65.9 kg
[2021-08-24] VITALS (25 sets, daily range): BP systolic 103–154; BP diastolic 47–90; PULSE 69–116; TEMP 97.6–98.8
[2021-08-24 03:53] LABS: BASO % 0.5 % (0.0-2.0); EOS # 0.2 K/mm3 (0.0-0.7); EOS % 2.5 % (0.0-4.0); GRAN # 4.9 K/mm3 (1.4-6.5); GRAN % 61.4 % (42.2-75.2); HEMATOCRIT 37.2 % (42.0-52.0); HEMOGLOBIN 12.9 g/dl (13.5-18.0); LYMPH % 24.9 % (20.0-51.0); MEAN CELL VOLUME 102 fl (80.0-100.0); MEAN CORPUSCULAR HEMOGLOBIN 35 pg (27-31); MEAN CORPUSCULAR HGB CONC 35 g/dl (33.0-37.0); MEAN PLATELET VOLUME 9.3 fl (7.4-10.4); MONO # 0.8 K/mm3 (0.1-0.6); MONO % 10.2 % (1.7-9.3); PLATELET COUNT 61 K/mm3 (130-400); RED BLOOD COUNT 3.65 M/mm3 (4.20-5.60); REDCELL DISTRIBUTION WIDTH-CV 14.2 % (11.5-14.5)
[2021-08-24 03:54] LABS: PROTHROMBIN TIME 11.7 SECONDS (9.7-12.8)
[2021-08-24 03:56] LABS: PARTIAL THROMBOPLASTIN TIME 27.7 SECONDS (26.0-37.0)
[2021-08-24 04:05] LABS: ALBUMIN 3.6 gm/dL (3.4-4.8); BILIRUBIN,TOTAL 0.9 mg/dL (0.2-1.2); CALCIUM 8.2 mg/dL (8.4-10.2); CREATININE, serum 0.95 mg/dL (0.72-1.25)
--- NOTE | 2021-08-24 08:00 | NUR ---
FULL ASSESSMENT COMPLETED THE PATIENT HAS AN EXTREME BLOODY NOSE WITH A CLAMP. THE PATIENT'S LOWER LIP IS ENLARGED FROM HIS FALL, AND HAS A LACERATION WITH A STITCH IN THE RIGHT SIDE OF HIS LIP. THERE IS A SWOLLEN ABRAISION TO THE RIGHT TEMPORAL AREA OF HIS SKULL. THERE IS ALSO A SWOLLEN LUMP TO THE RIGHT HIP AREA WITH BRUISING. THERE IS GENERALIZED BRUISING ALL OVER THE PATIENTS BODY. THE PATIENT HAD A STITCH TO THE LEFT CHEST AREA THAT WAS PULLED OUT, THERE IS TWO SMALL HOLES FROM THAT.
[2021-08-24 09:13] LABS: HEMATOCRIT 38.6 % (42.0-52.0); HEMOGLOBIN 13.3 g/dl (13.5-18.0); MEAN CELL VOLUME 103 fl (80.0-100.0); MEAN CORPUSCULAR HEMOGLOBIN 36 pg (27-31); MEAN CORPUSCULAR HGB CONC 35 g/dl (33.0-37.0); MEAN PLATELET VOLUME 9.1 fl (7.4-10.4); PLATELET COUNT 63 K/mm3 (130-400); RED BLOOD COUNT 3.75 M/mm3 (4.20-5.60); REDCELL DISTRIBUTION WIDTH-CV 14.2 % (11.5-14.5)
--- NOTE | 2021-08-24 10:00 | NUR ---
Message left for Paige at [facility].
--- NOTE | 2021-08-24 10:25 | NUR ---
Initial visit; Patient talked about his nose bleed to [employer] Farmer and didn't seem to know what caused his nose to bleed. Nurse came in to encourage him to keep the nose pin clipped on his nose and keep it still so it will stop. Tea Tree Farmer wished Fernando well.
--- NOTE | 2021-08-24 10:36 | NUR ---
intake worker met with patient to compete intake and discuss discharge plan. Patient resides at [facility]. Patient reports to being independent with his ADL's and utilizes a walker to assist with mobility. Patient states that he does not have any home oxygen needs. PCP is Dr. Fitzpatrick and he utilizes [facility] for medications. Patient does have a DP- established listing his two children :Xiomara Dickson ([phone]) and Jhonatan as his agents. Attempt made to contact the patient's daughter and was unsuccessful. Message left. JENNIFER collaborated with PT. At this time the recommendation it to return back to his apartment. Informed PT that this is his second admission this week due to falls. The first time he was seen in the ER and discharged back to his apartment. Once home the patient continued to drink resulting in a fall with a fractured nose. Nursing staff has not been able to get the patient's nose to stop bleeding. Asked PT to consider SNF to allow the patient's nose to heal and to prevent additional falls. JENNIFER spoke carlyle Gibson at [facility]. At this time they only have 1 SNF bed and have a wait list of approx. 20 people. Case discussed with Paige and clinical referral faxed. Discharge plan: Home vs. [facility] SNF
--- NOTE | 2021-08-24 11:00 | NUR ---
BLOOD BANK CALLED TO INFORM THIS RN THAT THE FFP IS READY FOR THE PATIENT. CONSENT OBTAINED.
--- NOTE | 2021-08-24 11:35 | NUR ---
STARTED THE PATIENT ON FRESH FROZEN PLASMA AT THIS TIME. THE PATIENT'S NOSE HAS BEEN BLEEDING SINCE ARRIVAL TO THE MEDICAL FLOOR. REPORT FROM ED STATES THAT THEY PLACED THE NOSE CLAMP ON AT 0630. AT 0748, NOTIFIED KAREEN ROBERTSON OF THE PATIENT'S NOSE CONTINUING TO DRIP. MARCELO CAME TO BEDSIDE AND STATES THEY WILL CALL DR. MÉNDEZ FROM ENT. AT 0830, THE PATIENT'S NOSE WAS CONTINUING TO BLEED, DR. DAVE DID LOOK, AND TALKED TO DR. MÉNDEZ. AT 1006, DR. DAVE ORDERED FFP TO BE STARTED, TYPE AND SCREEN WAS OBTAINED, AND FFP BEGAN TO THAW. AT 1050, BLOOD BANK CALLED TO INFORM THIS RN THAT THE PATIENTS FFP WAS THAWED AND READY. AT 1100 CONSENT FROM PATIENT WAS OBTAINED FOR FFP, AND AT 1119 THIS RN ARRIVED AT THE BLOOD BANK TO DOUGH MAKER FFP. THE FIRST UNIT OF FOUR FFP ORDERED WAS ON THE FLOOR AND STARTED AT 1133. 1133 AND STARTED.
--- NOTE | 2021-08-24 11:52 | NUR ---
PATIENT IS TOLERATING FFP WITHOUT DISCOMFORT.
--- NOTE | 2021-08-24 15:31 | NUR ---
Fire Equipment Operator presented and reviewed TODD form with patient who verbalized understanding and provided signature. SW placed form in chart and provided copy to patient.
[2021-08-24 16:52] LABS: MEAN CELL VOLUME 104 fl (80.0-100.0); MEAN CORPUSCULAR HGB CONC 34 g/dl (33.0-37.0); MEAN PLATELET VOLUME 9.6 fl (7.4-10.4); PLATELET COUNT 56 K/mm3 (130-400); RED BLOOD COUNT 2.95 M/mm3 (4.20-5.60); REDCELL DISTRIBUTION WIDTH-CV 14.2 % (11.5-14.5)
[2021-08-24 16:54] LABS: HEMATOCRIT 30.7 % (42.0-52.0); HEMOGLOBIN 10.4 g/dl (13.5-18.0); MEAN CORPUSCULAR HEMOGLOBIN 35 pg (27-31)
[2021-08-24] MEDS ORDERED: TOPROL XL 25MG25 MG PO (17:42)
[2021-08-24] MEDS ORDERED: NATURE'S BLEND100 M2 PO (17:42)
[2021-08-24] MEDS ORDERED: ELIQUIS 5MG PO (17:43)
--- NOTE | 2021-08-24 19:23 | NUR ---
THIS PATIENT HAD A DIFFICULT DAY. THE PATIENT WAS VERY ALERT HOWEVER HE WAS WANTING TO GET UP AND GO TO THE BATHROOM, AND WAS NOT OBEYING COMMANDS FROM NURSING COMMANDS. THE PATIENT'S BLOODY NOSE HAS FINALLY SLOWED DOWN. THIS RN HAS REPLACED THE "MUSTACHE" DRESSING ORDERED BY DR. MÉNDEZ 7 TIMES TODAY. THE PATIENT'S HEMOGLOBIN DROPPED FROM 13.3 TO 10.4 TODAY. THE PATIENT HAS RECEIVED A TOTAL OF 4 UNITS FRESH FROZEN PLASMA AND HAS 1 UNIT OF PLATELETS PENDING. THE LAST UNIT OF FFP IS FINISHING SOON. THE PATIENT CONTINUES TO HAVE SOME CONFUSING ABOUT HIS WHEREABOUTS, BUT WHEN REORIENTED THE PATIENT IS ORIENTED X4. NO OTHER CONCERNS AT THIS TIME. REPORT WAS GIVEN TO LUZ ELENA FOWLER.
[2021-08-24 22:40] LABS: MEAN CELL VOLUME 104 fl (80.0-100.0); MEAN CORPUSCULAR HGB CONC 35 g/dl (33.0-37.0); MEAN PLATELET VOLUME 9.1 fl (7.4-10.4); PLATELET COUNT 58 K/mm3 (130-400); RED BLOOD COUNT 2.68 M/mm3 (4.20-5.60); REDCELL DISTRIBUTION WIDTH-CV 13.9 % (11.5-14.5)
[2021-08-24 22:41] LABS: HEMATOCRIT 27.8 % (42.0-52.0); HEMOGLOBIN 9.6 g/dl (13.5-18.0); MEAN CORPUSCULAR HEMOGLOBIN 36 pg (27-31)
--- NOTE | 2021-08-24 22:53 | NUR ---
Lab results receivded, platelets still low 58. Reported to hospitalist who asked to wait for the labs in the morning. Patient nose bleeding has sttoped sice 8pm. Continue monitoring.
[2021-08-25] VITALS (11 sets, daily range): BP systolic 102–157; BP diastolic 54–91; PULSE 74–111; TEMP 98–98.7
--- NOTE | 2021-08-25 05:29 | NUR ---
Patient has had a calm night. His nose bleeding sttoped. Continue getting NS 75 ML/HR. CIWA 0-1. Telemetry in place, law, DONOVAN WNL. Denies pain. Report will be given to day RN.
[2021-08-25 07:17] LABS: BASO % 0.3 % (0.0-2.0); EOS % 0.3 % (0.0-4.0); GRAN # 4.1 K/mm3 (1.4-6.5); GRAN % 68.6 % (42.2-75.2); LYMPH # 1.4 K/mm3 (1.2-3.4); LYMPH % 22.6 % (20.0-51.0); MEAN CELL VOLUME 105 fl (80.0-100.0); MEAN CORPUSCULAR HGB CONC 34 g/dl (33.0-37.0); MEAN PLATELET VOLUME 9.2 fl (7.4-10.4); MONO # 0.5 K/mm3 (0.1-0.6); MONO % 7.9 % (1.7-9.3); PLATELET COUNT 67 K/mm3 (130-400); RED BLOOD COUNT 2.66 M/mm3 (4.20-5.60)
[2021-08-25 07:24] LABS: CALCIUM 8.3 mg/dL (8.4-10.2); CREATININE, serum 0.78 mg/dL (0.72-1.25)
[2021-08-25 07:25] LABS: HEMATOCRIT 27.9 % (42.0-52.0); HEMOGLOBIN 9.4 g/dl (13.5-18.0); MEAN CORPUSCULAR HEMOGLOBIN 35 pg (27-31)
[2021-08-25 07:27] LABS: POTASSIUM 2.9 mmol/L (3.5-4.5)
--- NOTE | 2021-08-25 08:40 | NUR ---
PT LAYING SUPINE IN BED ON ROOM AIR. NO BLEEDING FROM NOSE OR MOUTH AT THIS TIME. PT STATES THAT HE IS NOT HAVING ANY PAIN. PT STATES "I JUST NEED MY BREAKFAST." BREAKFAST WAS ORDERED AND ON ITS WAY. PT STATES NO OTHER NEEDS AT THIS TIME. CALL LIGHT IS WITHIN REACH.
--- NOTE | 2021-08-25 12:51 | NUR ---
Chain Dyer faxed clinical updates to Paige at [facility]. Paige advised they can accept patient for a skilled stay but that it would be private pay. JENNIFER attended clinical rounds with the team and followed up with patient about discharge plan. JENNIFER advised that the [facility] at [facility] could take him for a skilled stay, however it would be private pay. Patient is agreeable to private pay and feels he needs to go for a few days or so. JENNIFER contacted patient's daughter, Zoila and updated her on discharge plan. Discharge Plan: [facility] (Private Pay)
--- NOTE | 2021-08-25 18:15 | NUR ---
PT LAYING SUPINE IN BED. PT IS NOT HAVING ANY ACTIVE BLEEDING FROM NOSE OR OTHER SITES. PT STATES NO PAIN OR NEEDS AT THIS TIME. CALL LIGHT IS WITHIN REACH.
[2021-08-25 21:41] LABS: MAGNESIUM 1.4 mg/dL (1.6-2.6); POTASSIUM 3.3 mmol/L (3.5-4.5)
[2021-08-26 02:09] VITALS: BP 147/71; PULSE 82; TEMP 97.9
--- NOTE | 2021-08-26 02:36 | NUR ---
THROUGHOUT SHIFT PATIENT HAS CONSTANTLY GOTTEN OUT OF BED WIHTOUT USING CALL LIGHT AND SETTIN OFF BED ALARM. PATIENT FREQUENTLY HAVING TO URINATE VOID BUT SMALL AMOUNT, PATIENT DID HAVE X1 INCONTINECE VOID UNTO GROUND MEDIUM AMOUNT. PATIENT UNABLE ABLE TO SLEEP THROUGHOUT SHIFT AROUND 0230 OFFERED PATIENT IF HE WOULD LIKE CONDOM CATH DUE TO PERSISTANT NEED TO VOID AND RISK FOR FALL AND FATIGUE. PATIENT WAS OKAY WITH USING CONDOM CATH. PATIENT DID AT ONE TIME GET CONFUSED ANF FORGOT HE WAS IN THE HOSPITAL, WHICH HE WAS LOOKING FOR HIS BED HE WAS LAYING IN. REDIRECTED PATIENT, EDUCATE, AND REINFORCED TO PATIENT CALL LIGHT USE. ALSO BED ALARM IN PLACE WELL FALL RISK SAFETY. REPLACED POTASSIUM AND MAGNESIUM ON SHIFT. PATIENT REMAINS ON CIWA PRECAUTIONS.
--- NOTE | 2021-08-26 02:56 | NUR ---
PATIENT WOKE UP AROUND 244 ASKING FOR TIME. AROUND 2055 PATIENT WOKE UP STATED THAT HE NEEDED SOMEONE TO WASH HANDS TECH ASSISTED PATIENT WITH WET WIPES. PATIENT SLIGHTLY CONFUSED WILL CONTINUE TO REDIRECT PATIENT NEEDED THROUGHOUT SHIFT.
[2021-08-26 04:39] VITALS: BP 138/81; PULSE 108; TEMP 98.1
--- NOTE | 2021-08-26 04:52 | NUR ---
PATIENT GETTING UP AT LEAST EVERY HOUR ASKING TO USE RESTROOM, WASH HANDS, TRYING TO GET DRESSED TO DISCHARGE TODAY. PATIENT ALSO THINKING IT'S SUPPER REINFORCING TO PATIENT IT IS THE MORNING AND BREAKFAST IS SERVED AROUND 0730. ASKED PATIENT IF HE WAS HUNGRY STATED HE WAS NOT RIGHT NOW. BED ALARM IN PLACE
--- NOTE | 2021-08-26 05:24 | NUR ---
PATIENT VERY CONFUSED THIS MORNING STATED WOULD LIKE TO GO TO THE ROOM NEXT DOOR. REDIRECTED PATIENT INFORMED HE WAS IN HIS ROOM AND BED. PATIENT HAS NOT SLEPT THROUGHOUT THE NIGHT. HE HAS BEEN GETTING UP AND OUT OF BED, VERY RESTLESS THROUGHOUT THE NIGHT. WILL CONTINUE TO MONITOR PATIENT AND REDIRECT NEEDED.
[2021-08-26 06:08] VITALS: BP 118/61; PULSE 91; TEMP 97.6
[2021-08-26 07:29] LABS: HEMATOCRIT 27.4 % (42.0-52.0); HEMOGLOBIN 9.2 g/dl (13.5-18.0)
[2021-08-26 07:30] VITALS: BP 121/65; PULSE 92; TEMP 98
[2021-08-26 07:50] LABS: CALCIUM 8.4 mg/dL (8.4-10.2); CREATININE, serum 0.73 mg/dL (0.72-1.25); MAGNESIUM 1.9 mg/dL (1.6-2.6); POTASSIUM 3.4 mmol/L (3.5-4.5)
--- NOTE | 2021-08-26 08:15 | NUR ---
PT SITTING UP IN CHAIR EATING [facility]. PT IS A&O X3. PT STATES THAT HE IS NOT HAVING ANY PAIN. PT STATES NO NEEDS AT THIS TIME. "I AM JUST GOING TO FINISH MY BREAKFAST." CHAIR ALARM IS ON. CALL LIGHT IS WITHIN REACH.
[2021-08-26] MEDS ORDERED: AMOXICILLIN 8751 TAB PO (09:08)
[2021-08-26] MEDS ORDERED: FERROUS SU325 MG/TAB PO (09:08)
[2021-08-26] MEDS ORDERED: TYLENOL 8 HR PO (09:09)
[2021-08-26] MEDS ORDERED: THIAMINE 1100 MG/TAB PO (09:10)
[2021-08-26] MEDS ORDERED: DUO-KAPS1 CAP PO (09:10)
[2021-08-26] MEDS ORDERED: FOLIC ACID 11 MG/TA1 PO (09:10)
[2021-08-26] MEDS ORDERED: MAG-OX 400400 MG/TAB PO (09:11)
[2021-08-26] MEDS ORDERED: K-DUR20 MEQ PO (09:11)
--- NOTE | 2021-08-26 09:19 | NUR ---
Patient to discharge to [facility] SNF as private pay today. Contact made with Dinah at [facility] to inform of discharge today. Clinical updates and discharge orders faxed. Covid swab requested. Dinah will call me with a transportation time.
--- NOTE | 2021-08-26 10:53 | NUR ---
REPORT CALLED TO CHRIS AT [facility]. ALL QUESTIONS ANSWERED. NUMBER LEFT FOR ANY OTHER INFORMATION NEEDED.
== END 2021-08-26 11:59 ==
LOC: COL.ER 02:59 → MEDICAL 05:24
PROVIDERS: Emergency Medicine; Internal Medicine; Physician Assistant; Student in an Organized Health Care Education/Training Program; ADMIT Family Medicine
DX: S02.2XXA Fracture of nasal bones, initial encounter for closed fracture (principal); S01.511A Laceration without foreign body of lip, initial encounter; I48.91 Unspecified atrial fibrillation; I27.20 Pulmonary hypertension, unspecified; D50.9 Iron deficiency anemia, unspecified; I10 Essential (primary) hypertension; E78.5 Hyperlipidemia, unspecified; J45.909 Unspecified asthma, uncomplicated; G47.33 Obstructive sleep apnea (adult) (pediatric); N40.0 Benign prostatic hyperplasia without lower urinary tract symptoms; F10.229 Alcohol dependence with intoxication, unspecified; Y90.8 Blood alcohol level of 240 mg/100 ml or more; R29.6 Repeated falls
CPT/HCPCS: G0378; J3475; J7030; P9035

== ENCOUNTER → 2021-08-29 | Outpatient (CLI) | payer MEDICARE, BC ==
[~2021-08-29] MED LIST changes: +AMOXICILLIN 8751 TAB PO; +DUO-KAPS1 CAP PO; +FERROUS SU325 MG/TAB PO; +K-DUR20 MEQ PO; +MAG-OX 400400 MG/TAB PO; +TOPROL XL 25MG25 MG PO; +TYLENOL 8 HR PO
[2021-08-29 13:01] LABS: BASO % 0.5 % (0.0-2.0); CALCIUM 8.4 mg/dL (8.4-10.2); CREATININE, serum 0.98 mg/dL (0.72-1.25); EOS # 0.3 K/mm3 (0.0-0.7); EOS % 8.1 % (0.0-4.0); GRAN # 2.1 K/mm3 (1.4-6.5); GRAN % 50.9 % (42.2-75.2); HEMOGLOBIN 9.3 g/dl (13.5-18.0); LYMPH % 25.2 % (20.0-51.0); MAGNESIUM 1.9 mg/dL (1.6-2.6); MEAN CELL VOLUME 109 fl (80.0-100.0); MEAN CORPUSCULAR HEMOGLOBIN 36 pg (27-31); MEAN CORPUSCULAR HGB CONC 33 g/dl (33.0-37.0); MEAN PLATELET VOLUME 9.2 fl (7.4-10.4); MONO # 0.6 K/mm3 (0.1-0.6); MONO % 14.6 % (1.7-9.3); PLATELET COUNT 116 K/mm3 (130-400); POTASSIUM 3.8 mmol/L (3.5-4.5); RED BLOOD COUNT 2.57 M/mm3 (4.20-5.60); REDCELL DISTRIBUTION WIDTH-CV 13.4 % (11.5-14.5)
== END ==
LOC: ZCOL.LAB 12:32
PROVIDERS: Internal Medicine
DX: N18.30 Chronic kidney disease, stage 3 unspecified (principal)

== ENCOUNTER 2021-11-09 10:48 | Emergency (ER) | payer MEDICARE, BC ==
[~2021-11-09] VITALS: Ht 170.2 cm; Wt 61.4 kg
[2021-11-09 11:54] LABS: BASO % 0.4 % (0.0-2.0); EOS % 0.3 % (0.0-4.0); GRAN # 6.1 K/mm3 (1.4-6.5); GRAN % 82.7 % (42.2-75.2); HEMATOCRIT 38.5 % (42.0-52.0); HEMOGLOBIN 12.9 g/dl (13.5-18.0); LYMPH # 0.7 K/mm3 (1.2-3.4); MEAN CELL VOLUME 109 fl (80.0-100.0); MEAN CORPUSCULAR HEMOGLOBIN 36 pg (27-31); MEAN CORPUSCULAR HGB CONC 34 g/dl (33.0-37.0); MONO # 0.5 K/mm3 (0.1-0.6); MONO % 7.3 % (1.7-9.3); RED BLOOD COUNT 3.55 M/mm3 (4.20-5.60); REDCELL DISTRIBUTION WIDTH-CV 12.9 % (11.5-14.5)
[2021-11-09 12:04] LABS: ALBUMIN 3.7 gm/dL (3.4-4.8); BILIRUBIN,TOTAL 1.1 mg/dL (0.2-1.2); CALCIUM 8.6 mg/dL (8.4-10.2); CREATININE, serum 0.83 mg/dL (0.72-1.25); TOTAL PROTEIN 5.8 gm/dL (6.2-8.1)
[2021-11-09 12:11] LABS: PLATELET COUNT 46 K/mm3 (130-400)
[2021-11-09 13:32] VITALS: BP 166/97; PULSE 104; TEMP 98.3
[2021-11-09 13:56] VITALS: BP 141/86; PULSE 96; TEMP 98.4
[2021-11-09 14:45] VITALS: BP 138/91; PULSE 141; TEMP 98.6
[2021-11-09 15:18] VITALS: BP 148/73; PULSE 124
== END 2021-11-09 15:23 | disposition short-term general hospital (02) ==
LOC: COL.ER 10:48
PROVIDERS: Personal Emergency Response Attendant
DX: S06.5X9A Traumatic subdural hemorrhage with loss of consciousness of unspecified duration, initial encounter (principal); S01.81XA Laceration without foreign body of other part of head, initial encounter; F10.229 Alcohol dependence with intoxication, unspecified; D69.6 Thrombocytopenia, unspecified; H11.31 Conjunctival hemorrhage, right eye; Y90.6 Blood alcohol level of 120-199 mg/100 ml; Z87.891 Personal history of nicotine dependence; W18.30XA Fall on same level, unspecified, initial encounter
CPT/HCPCS: J1953; P9035